=== PATIENT | female | born 1985 | race Caucasian/White ===

== ENCOUNTER 2019-12-23 18:12 | Emergency (ER) | payer SELFPAY ==
--- NOTE | 2019-12-23 19:43 | ER Document Report ---
ED Medical Screen (RME) - General Chief Complaint: Back Pain Stated Complaint: BACK,SHOULDER PAIN,JAW PAIN Time Seen by Provider: 12/23/19 19:36 Mode of Arrival: Ambulatory Information source: Patient Notes: HPI; 34-year-old female patient who is deaf but is able to read lips presents to the emergency room complaining of left shoulder pain for the past 2 to 3 days that radiates to her jaw. Denies any nausea, no vomiting, no trauma no injury. PE: Alert and oriented x3. Moderate distress noted. Lungs: Clear to auscultation without rales rhonchi wheezes. Heart: Regular rate rhythm without murmurs rubs or gallops. I have greeted and performed a rapid initial assessment of this patient. A comprehensive ED assessment and evaluation of the patient, analysis of test results and completion of the medical decision making process will be conducted by additional ED providers. I have specifically instructed the patient or family members with the patient to immediately return to any nursing staff should anything change in the patient's condition or with their chief complaint. TRAVEL OUTSIDE OF THE [place] IN LAST 30 DAYS: No - Related Data Allergies/Adverse Reactions: No Known Allergies Allergy (Verified 12/23/19 19:41) Past Medical History - Social History Chew tobacco use (# tins/day): No Frequency of alcohol use: Occasional Drug Abuse: Marijuana Physical Exam - Vital signs Vitals: Temp Pulse Resp BP Pulse Ox 98.9 F 96 16 123/80 95 12/23/19 18:27 12/23/19 18:27 12/23/19 18:27 12/23/19 18:27 12/23/19 18:27 Course - Vital Signs Vital signs: Temp Pulse Resp BP Pulse Ox 98.9 F 96 16 123/80 95 12/23/19 19:35 12/23/19 18:27 12/23/19 18:27 12/23/19 18:27 12/23/19 18:27
[2019-12-23 20:00] LABS: ABSOLUTE BASOPHILS # (AUTO) 0.1 10^3/uL (0.0-0.2); ABSOLUTE EOSINOPHILS # (AUTO) 0.1 10^3/uL (0.0-0.6); ABSOLUTE LYMPHOCYTES (AUTO) 2.7 10^3/uL (0.5-4.7); ABSOLUTE MONOCYTES (AUTO) 0.7 10^3/uL (0.1-1.4); ABSOLUTE NEUT (AUTO) 5.6 10^3/uL (1.7-8.2); BASOPHILS % (AUTO) 0.6 % (0-2); EOSINOPHILS % (AUTO) 0.9 % (0-6); HEMATOCRIT 45.2 % (36.0-47.0); HEMOGLOBIN 15.7 g/dL (12.0-15.5); LYMPHOCYTES % (AUTO) 29.4 % (13-45); MEAN CORPUSCULAR HEMOGLOBIN 34.4 pg (27.0-33.4); MEAN CORPUSCULAR HGB CONC 34.7 g/dL (32.0-36.0); MEAN CORPUSCULAR VOLUME 99 fl (80-97); PLATELET COUNT 265 10^3/uL (150-450); RED BLOOD COUNT 4.56 10^6/uL (3.72-5.28); RED CELL DISTRIBUTION WIDTH 12.6 % (11.5-14.0); SEGMENTED NEUTROPHILS % (AUTO) 61.1 % (42-78); TOTAL CELLS COUNTED % (AUTO) 100 %; WHITE BLOOD COUNT 9.2 10^3/uL (4.0-10.5)
[2019-12-23 20:05] LABS: ALKALINE PHOSPHATASE 55 U/L (38-126); ANION GAP 5 (5-19); ASPARTATE AMINO TRANSFERASE 21 U/L (14-36); BILIRUBIN,TOTAL 0.3 mg/dL (0.2-1.3); BLOOD UREA NITROGEN 16 mg/dL (7-20); CALCIUM 9.5 mg/dL (8.4-10.2); CARBON DIOXIDE 29 mmol/L (22-30); CHLORIDE 103 mmol/L (98-107); CREATINE KINASE 55 U/L (30-135); GLUCOSE 99 mg/dL (75-110); POTASSIUM 3.9 mmol/L (3.6-5.0); TOTAL PROTEIN 6.8 g/dL (6.3-8.2)
[2019-12-23 20:15] LABS: CREATINE KINASE MB 0.35 ng/mL (<4.55)
[2019-12-23 20:22] LABS: TROPONIN I < 0.012 ng/mL
--- NOTE | 2019-12-23 20:26 | RADIOLOGY REPORT (SQ) ---
CLINICAL INDICATION: pain. . TECHNIQUE: 3 view(s) were obtained of the left shoulder. COMPARISON: None. FINDINGS: No acute displaced fracture is identified of the shoulder. Alignment appears anatomic. Joint spaces are within normal limits for age. Surrounding soft tissues are unremarkable. IMPRESSION: No evidence of acute bony injury to the shoulder.
--- NOTE | 2019-12-23 20:26 | RADIOLOGY REPORT (SQ) ---
CLINICAL INDICATION: pain. TECHNIQUE: PA and lateral views were obtained of the chest COMPARISON: None. FINDINGS: The cardiomediastinal silhouette is normal. The lungs are grossly clear. No evidence of effusion or pneumothorax. Mild presumed chronic interstitial prominence with mild hyperinflation. . IMPRESSION: No evidence of active intrathoracic disease . Mild presumed chronic change
--- NOTE | 2019-12-23 22:04 | EKG REPORT ---
SEVERITY:- NORMAL ECG - SINUS RHYTHM : Confirmed by: Dianna Wooten MD 23-Dec-2019 22:03:30
--- NOTE | 2019-12-24 01:01 | ER Document Report ---
ED General - General Chief Complaint: Shoulder Pain Stated Complaint: BACK,SHOULDER PAIN,JAW PAIN Time Seen by Provider: 12/23/19 19:36 Mode of Arrival: Ambulatory Notes: 34 year old female presents to the ED complaining of left upper chest pain radiating to her left shoulder blade and left neck. States that it is a knife- like pain that occasionally worsens with swallowing, but otherwise has no exacerbating factors. Patient does note that she has lumps on her left side of her neck and when she googled neck pain and shoulder blade pain she became concerned that she might be having a heart attack. Patient notes that her biological father had to have a heart transplant for a long history of heart problems but she does not know what type of heart problems. She does not know if it was an infection or ischemic cardiovascular disease or what. Patient has no personal history of cardiovascular disease. Denies any shortness of breath, denies any vomiting, admits nausea 4 days ago when she started her period, states this is the same as always. Also notes that the left side of her jaw pops but this is been going on for several years since she fell and hit her jaw while intoxicated one evening. States this is unchanged. TRAVEL OUTSIDE OF THE [place] IN LAST 30 DAYS: No - Related Data Allergies/Adverse Reactions: No Known Allergies Allergy (Verified 12/23/19 19:41) Past Medical History - General Information source: Patient - Social History Smoking Status: Current Every Day Smoker Chew tobacco use (# tins/day): No Frequency of alcohol use: Occasional Drug Abuse: Marijuana Family History: Other - Patient is adopted, biological father with heart transplant, exact reason unknown. Biological father also has chronic kidney dis ease. Review of Systems - Review of Systems Constitutional: No symptoms reported EENT: See HPI - Neck and jaw pain. Cardiovascular: See HPI, Chest pain. denies: Orthopnea, Dyspnea, Syncope Respiratory: No symptoms reported Gastrointestinal: See HPI, Nausea. denies: Abdominal pain, Vomiting Genitourinary: No symptoms reported Musculoskeletal: See HPI, Neck pain -: Yes All other systems reviewed and negative Physical Exam - Vital signs Vitals: Temp Pulse Resp BP Pulse Ox 98.9 F 96 16 123/80 95 12/23/19 18:27 12/23/19 18:27 12/23/19 18:27 12/23/19 18:27 12/23/19 18:27 Interpretation: Normal - Notes Notes: GENERAL: Alert, interacts well. No acute distress. HEAD: Normocephalic, atraumatic EYES: Pupils equal, round and reactive to light, extraocular movements intact. ENT: Oral mucosa moist, tongue midline. Nares patent, no nasal septal hematoma, TMs intact. There is scarring on the tympanic membrane bilaterally. NECK: Full range of motion, supple, trachea midline. Anterior and posterior cervical lymphadenopathy noted on the left-hand side, no source for this lymphadenopathy is noted. All lymph nodes are less than 1 cm, no erythema, easily mobile. Mildly tender to palpation. LUNGS: Clear to auscultation bilaterally, no wheezes, rales or rhonchi, no respiratory distress. HEART: Regular rate and rhythm, no murmurs, gallops, rubs. ABDOMEN: Soft, nontender, nondistended, bowel sounds present in all 4 quadrants. EXTREMITIES: Moves all 4 extremities spontaneously, no edema, radial and dorsalis pedis pulses 2/4 bilaterally. No cyanosis. NEUROLOGICAL: Alert and oriented x3, muffled speech consistent with deafness, uses sign language without difficulty, biceps DTRs 2+ bilaterally. PSYCH: Normal mood, normal affect. SKIN: Warm, Dry, normal turgor, no rashes or lesions noted. Course - Re-evaluation Re-evalutation: 12/24/19 02:17 CBC unremarkable, CMP unremarkable, troponin negative x2, lipase normal. EKG is not ischemic. Chest X-Ray 12/23/19 19:40 IMPRESSION: No evidence of active intrathoracic disease . Mild presumed chronic change Shoulder X-Ray 12/23/19 19:41 IMPRESSION: No evidence of acute bony injury to the shoulder. Patient does have cervical lymphadenopathy on the left-hand side. I do not have a specific source for this. No acute infection is seen. Patient has not had any difficulty swallowing despite having intermittent pain with swallowing for the past several days. No indication at this time for a CT scan of the neck. Patient will be discharged to home. Discussed with her that given that she does have some epigastric pain that does radiate upwards I would like to start her on an H2 celio but at this time I do not see any evidence of ischemic cardiac disease and she will be discharged to home. - Vital Signs Vital signs: Temp Pulse Resp BP Pulse Ox 98.9 F 96 16 123/80 95 07/01/20 19:35 12/23/19 18:27 12/23/19 18:27 12/23/19 18:27 12/23/19 18:27 - Laboratory Result Diagrams: 12/23/19 18:40 12/23/19 18:40 Laboratory results interpreted by me: 12/23/19 12/23/19 18:40 18:40 Hgb 15.7 H MCV 99 H MCH 34.4 H Sodium 136.5 L - EKG Interpretation by Me Additional EKG results interpreted by me: 12/24/19 01:01 EKG shows sinus rhythm at a rate of 78, normal axis, normal intervals, no ST segment elevations or depressions, no T wave inversions per my interpretation. Discharge - Discharge Clinical Impression: Lymphadenopathy of left cervical region Left shoulder pain Qualifiers: Chronicity: acute Qualified Code(s): M25.512 - Pain in left shoulder Condition: Stable Disposition: HOME, SELF-CARE Additional Instructions: Today did not find a specific explanation for why you are having pain or why you have enlarged lymph nodes on the left side of your neck. I did not find any signs of infection. You do not need any antibiotics. The tests for heart attack were negative. There is no sign of pneumonia on your chest x-ray. There was no evidence of pancreatitis either. Your lipase is normal. Some of the pain that is going to shoulder and chest may be coming from irritation in your stomach. I would like you to start taking Pepcid 20 mg twice a day or the [id number] antacid of your choice for the next 2 weeks to see if this helps. We also discussed your hemorrhoids. I would like you to please dissolve 1 scoop of MiraLAX in a glass of water once a day to treat constipation. You may increase to twice a day if needed to create soft bowel movements and you may decrease to every other day if you develop diarrhea. Prescriptions: Famotidine [Pepcid 20 mg Tablet] 20 mg PO BID #30 tablet
[2019-12-24 02:45] VITALS: BP 120/78
== END 2019-12-24 02:43 | disposition home or self-care (01) ==
LOC: ER 18:12
DX: R59.0 Localized enlarged lymph nodes (principal); M25.512 Pain in left shoulder; R07.9 Chest pain, unspecified; M54.2 Cervicalgia; R11.0 Nausea; F17.200 Nicotine dependence, unspecified, uncomplicated
CPT/HCPCS: 36415; 71046; 80053; 82550; 82553; 83690; 84484; 85025; 93005; 93010; 99284